=== PATIENT | female | born 1940 | race Caucasian/White ===

== ENCOUNTER → 2017-10-30 | Day surgery (SDC) | payer OTHER ==
[~2017-10-30] MED LIST: CLONAZEPAM2 MG PO; PAXIL20 MG PO; REMERON30 MG PO; SEROQUEL XR150 MG PO
== END | disposition home or self-care (01) ==
LOC: CIR.AMB 07:21
DX: S52.021A Displaced fracture of olecranon process without intraarticular extension of right ulna, initial encounter for closed fracture (principal)
CPT/HCPCS: 24587; 64718; C1776